=== PATIENT | female | born 1940 | race Caucasian/White ===

== ENCOUNTER 2016-02-23 10:00 | Outpatient (RCR) | payer MEDICARE ==
[2008-07-26 12:34] VITALS: BP 126/73
[2015-11-30 13:58] VITALS: BP 121/49; PULSE 57; TEMP 98.5
[2015-12-07 13:37] LABS: HEMATOCRIT 31.1 % (37.0-47.0); HEMOGLOBIN 9.4 g/dl (12.5-16.0)
[2015-12-07 13:48] LABS: CALCIUM 7.4 mg/dL (8.4-10.2); CREATININE, serum 1.32 mg/dL (0.52-1.25); POTASSIUM 4.7 mmol/L (3.4-5.0)
[2015-12-07 14:24] VITALS: BP 128/78; PULSE 78; TEMP 97.5
[2015-12-14 11:12] VITALS: BP 114/49; PULSE 56; TEMP 97.5
[2015-12-21 10:49] VITALS: BP 118/50; PULSE 52; TEMP 97.8
[2015-12-31 11:17] VITALS: BP 121/53; PULSE 52; TEMP 98.3
[2016-01-07 10:00] VITALS: BP 126/55; PULSE 54; TEMP 98.2
[2016-01-07 10:42] LABS: MEAN CELL VOLUME 111 fl (80.0-100.0); MEAN CORPUSCULAR HGB CONC 31 g/dl (33.0-37.0); MEAN PLATELET VOLUME 10.7 fl (7.4-10.4); PLATELET COUNT 137 K/mm3 (130-400); RED BLOOD COUNT 3.01 M/mm3 (4.10-5.30); REDCELL DISTRIBUTION WIDTH-CV 14.2 % (11.5-14.5); WHITE BLOOD COUNT 5.8 K/mm3 (4.8-10.8)
[2016-01-07 10:46] LABS: HEMATOCRIT 33.3 % (37.0-47.0); HEMOGLOBIN 10.2 g/dl (12.5-16.0); MEAN CORPUSCULAR HEMOGLOBIN 34 pg (27.0-31.0)
[2016-01-07 10:56] LABS: ADJUSTED CALCIUM 7.6 mg/dL (8.4-10.2); ALBUMIN 2.7 gm/dL (3.5-5.0); BILIRUBIN,TOTAL 0.8 mg/dL (0.0-1.0); CALCIUM 6.6 mg/dL (8.4-10.2); CREATININE, serum 0.78 mg/dL (0.52-1.25); POTASSIUM 4.4 mmol/L (3.4-5.0); TOTAL PROTEIN 5.3 gm/dL (6.4-8.2)
[2016-01-12 11:30] LABS: VITAMIN K 0.09 ng/mL (())
[2016-01-13 10:15] VITALS: BP 128/51; PULSE 52; TEMP 98
[2016-01-20 10:03] VITALS: BP 125/69; PULSE 57; TEMP 97.9
[2016-01-29 10:22] VITALS: BP 132/60; PULSE 57; TEMP 98
[2016-02-08 08:24] VITALS: BP 134/54; PULSE 58; TEMP 98.6
[2016-02-08 08:52] LABS: HEMATOCRIT 31.4 % (37.0-47.0); HEMOGLOBIN 9.5 g/dl (12.5-16.0)
[2016-02-08 08:58] LABS: CALCIUM 7.6 mg/dL (8.4-10.2); CREATININE, serum 0.82 mg/dL (0.52-1.25); POTASSIUM 3.6 mmol/L (3.4-5.0)
[2016-02-16 10:30] VITALS: BP 140/62; PULSE 59
[~2016-02-23] VITALS: Ht 167.6 cm; Wt 77.0 kg
[~2016-02-23 10:00] MED LIST: ALIGN; AMBIEN 10MG10 M1 PO; AMBIEN 10MG10 MG PO; CALCIUM CARBON650 M2 PO; CALTRATE-600 W600 MG PO; CELEBREX 200MG200 MG PO; CELEXA 20MG20 MG/TAB PO; CELEXA20 MG PO; CIPRO 100MG TA100 MG PO; CRANBERRY CONC500 MG PO; CRANBERRY1 CAP PO; CRANBERRY450 MG PO; FORTEO250 MCG/ML SC; FUROSEMIDE40 MG PO; HYDROCODONE/APAP PO; K-DUR 10 MEQ T10 MEQ PO; KLOR-CON M2020 MEQ PO; LASIX 40MG TABL40 MG PO; LEVOTHROID0.2 M1 PO; LEVOTHYROXINE0.2 MG PO; LEVOXYL0.2 MG PO; LOMOTIL 0.025 M1 TAB; LOMOTIL 0.025 M1 TAB PO; MOBIC15 MG PO; MULTIPLE VITAMI1 CAP PO; MULTIPLE VITAMI1 TA5 PO; MVI IJ; MVI PO; NATURAL ZINC50 MG PO; NORCO 325 MG-51 TAB PO; PANTOPRAZOLE40 MG PO; PARICALCITOL IV; PENTASA PO; PENTASA500 MG PO; POTASSIUM CH2 MEQ/ML PO; POTASSIUM CHLO10 ME3 PO; PRILOSEC 20MG20 MG PO; PRILOSEC20 MG PO; PROBIOTICA100 Milli1 PO; PROTONIX 40MG T40 MG PO; RECLAST IJ; RECLAST5 MG/100 M IV; RECLAST5 MG/1001 IV; SYNTHROID0.05 MG/TA PO; SYNTHROID0.3 MG PO; ULTRAM 50MG TAB50 MG PO; VITAMIN B IJ; VITAMIN B-12100 MCG PO; VITAMIN B1100 MCG/ML IM; VITAMIN B11000 MCG/M IM; VITAMIN B12 PO; VITAMIN B12500 MCG PO; VITAMIN K0.1 MG PO; ZAROXOLYN PO; ZITHROMAX 250M250 MG PO; [UNRECOGNIZED DRUG - OTHER] IV
[2016-02-23 10:30] VITALS: BP 124/57; PULSE 57; TEMP 97.9
== END 2016-02-28 | disposition still patient (30) ==
LOC: EUO
PROVIDERS: Internal Medicine
DX: E03.4 Atrophy of thyroid (acquired) (principal); K90.89 Other intestinal malabsorption; M81.0 Age-related osteoporosis without current pathological fracture; E53.8 Deficiency of other specified B group vitamins; E56.1 Deficiency of vitamin K; E55.9 Vitamin D deficiency, unspecified; K50.00 Crohn's disease of small intestine without complications; E61.0 Copper deficiency; K90.0 Celiac disease; K86.81 Exocrine pancreatic insufficiency
CPT/HCPCS: J1644; J2501; J3420; J3489; J7040; Q9967

== ENCOUNTER → 2016-06-02 | Outpatient (RCR) | payer MEDICARE ==
[2008-07-26 12:34] VITALS: BP 126/73
[2016-03-04 13:20] VITALS: BP 116/50; PULSE 58; TEMP 98.6
[2016-03-04 13:38] LABS: BASO % 0.7 % (0.0-2.0); EOS # 0.1 (0.0-0.7); EOS % 1.4 % (0-4.0); GRAN # 3.6 (1.4-6.5); GRAN % 62.1 % (42.2-75.2); LYMPH # 1.5 (1.2-3.4); LYMPH % 25.3 % (20.0-51.0); MEAN CORPUSCULAR HGB CONC 31 g/dl (33.0-37.0); MONO # 0.6 (0.1-0.6); MONO % 10.3 % (1.7-9.3); PLATELET COUNT 137 K/mm3 (130-400); RED BLOOD COUNT 2.84 M/mm3 (4.10-5.30); REDCELL DISTRIBUTION WIDTH-CV 14.2 % (11.5-14.5); WHITE BLOOD COUNT 5.7 K/mm3 (4.8-10.8)
[2016-03-04 13:39] LABS: HEMATOCRIT 30.6 % (37.0-47.0); HEMOGLOBIN 9.5 g/dl (12.5-16.0); MEAN CELL VOLUME 108 fl (80.0-100.0); MEAN CORPUSCULAR HEMOGLOBIN 33 pg (27.0-31.0)
[2016-03-04 13:52] LABS: ADJUSTED CALCIUM 8.3 mg/dL (8.4-10.2); ALBUMIN 2.8 gm/dL (3.5-5.0); BILIRUBIN,TOTAL 0.8 mg/dL (0.0-1.0); CALCIUM 7.3 mg/dL (8.4-10.2); CREATININE, serum 0.8 mg/dL (0.52-1.25); POTASSIUM 3.9 mmol/L (3.4-5.0); TOTAL PROTEIN 5.2 gm/dL (6.4-8.2)
[2016-03-07 13:28] LABS: .COPPER,S 0.51 mcg/mL (())
[2016-03-08 08:12] LABS: VITAMIN K 0.11 ng/mL (())
[2016-03-11 10:57] VITALS: BP 117/48; PULSE 52; TEMP 98.2
[2016-03-18 13:49] VITALS: BP 133/62; PULSE 65; TEMP 98.9
[2016-03-24 10:48] VITALS: BP 137/57; PULSE 54; TEMP 98.3
[2016-03-31 10:43] LABS: HEMATOCRIT 30.6 % (37.0-47.0)
[2016-03-31 10:53] LABS: CREATININE, serum 0.76 mg/dL (0.52-1.25); POTASSIUM 4.4 mmol/L (3.4-5.0)
[2016-03-31 11:56] VITALS: BP 120/47; PULSE 57; TEMP 97.9
[2016-04-07 11:36] VITALS: BP 123/50; PULSE 60; TEMP 98.4
[2016-04-14 11:57] VITALS: BP 125/44; PULSE 56; TEMP 97.7
[2016-04-21 13:44] VITALS: BP 124/52; PULSE 68; TEMP 98.3
[2016-04-28 13:40] VITALS: BP 119/55; PULSE 61; TEMP 98.5
[2016-04-28 14:05] LABS: MEAN CORPUSCULAR HGB CONC 29 g/dl (33.0-37.0); MEAN PLATELET VOLUME 11.1 fl (7.4-10.4); PLATELET COUNT 141 K/mm3 (130-400); RED BLOOD COUNT 2.65 M/mm3 (4.10-5.30); REDCELL DISTRIBUTION WIDTH-CV 16.3 % (11.5-14.5); WHITE BLOOD COUNT 6.6 K/mm3 (4.8-10.8)
[2016-04-28 14:10] LABS: HEMATOCRIT 30.1 % (37.0-47.0); HEMOGLOBIN 8.7 g/dl (12.5-16.0); MEAN CELL VOLUME 114 fl (80.0-100.0); MEAN CORPUSCULAR HEMOGLOBIN 33 pg (27.0-31.0)
[2016-04-28 14:39] LABS: ALBUMIN 2.9 gm/dL (3.5-5.0); BILIRUBIN,TOTAL 0.9 mg/dL (0.0-1.0); CALCIUM 8.1 mg/dL (8.4-10.2); CREATININE, serum 0.76 mg/dL (0.52-1.25); POTASSIUM 4.3 mmol/L (3.4-5.0); TOTAL PROTEIN 5.2 gm/dL (6.4-8.2)
[2016-04-28 14:55] LABS: PHOSPHOROUS 3.8 mg/dL (2.5-4.5)
[2016-05-02 14:42] LABS: .COPPER,S 0.55 mcg/mL (())
[2016-05-03 23:31] LABS: VITAMIN K 0.12 ng/mL (())
[2016-05-05 14:30] VITALS: BP 124/50; PULSE 59; TEMP 98.6
[2016-05-13 15:23] VITALS: BP 119/45; PULSE 53; TEMP 97.9
[2016-05-19 12:00] VITALS: BP 120/48; PULSE 57; TEMP 98.1
[2016-05-26 10:30] VITALS: BP 129/57; PULSE 56; TEMP 98.1
[2016-05-26 10:42] LABS: HEMATOCRIT 34.4 % (37.0-47.0); HEMOGLOBIN 10.4 g/dl (12.5-16.0)
[2016-05-26 10:52] LABS: CALCIUM 8.1 mg/dL (8.4-10.2); CREATININE, serum 0.77 mg/dL (0.52-1.25); POTASSIUM 4.3 mmol/L (3.4-5.0)
[~2016-06-02] VITALS: Ht 167.6 cm; Wt 77.0 kg
[~2016-06-02] MED LIST changes: +SYNTHROID0.2 MG/TAB PO
[2016-06-02 11:10] VITALS: BP 126/58; PULSE 56; TEMP 98.3
== END | disposition still patient (30) ==
LOC: EUO
PROVIDERS: Family Medicine; Internal Medicine
DX: E03.4 Atrophy of thyroid (acquired) (principal); K90.89 Other intestinal malabsorption; M81.0 Age-related osteoporosis without current pathological fracture; E53.8 Deficiency of other specified B group vitamins; E56.1 Deficiency of vitamin K; E55.9 Vitamin D deficiency, unspecified; K50.00 Crohn's disease of small intestine without complications; E61.0 Copper deficiency; K90.0 Celiac disease; K86.81 Exocrine pancreatic insufficiency
CPT/HCPCS: J1644; J2501; J3420; J7040

== ENCOUNTER 2016-09-01 10:00 | Outpatient (RCR) | payer MEDICARE ==
[2008-07-26 12:34] VITALS: BP 126/73
[2016-06-09 11:00] VITALS: BP 113/44; PULSE 58; TEMP 97.9
[2016-06-16 10:18] VITALS: BP 126/44; PULSE 54; TEMP 97.1
[2016-06-16 12:00] VITALS: BP 126/44; PULSE 64; TEMP 97.8
[2016-06-23 11:40] LABS: HEMATOCRIT 34.9 % (37.0-47.0); HEMOGLOBIN 10.7 g/dl (12.5-16.0)
[2016-06-23 11:49] LABS: CALCIUM 8.3 mg/dL (8.4-10.2); CREATININE, serum 0.91 mg/dL (0.52-1.25); PHOSPHOROUS 4.6 mg/dL (2.5-4.5); POTASSIUM 3.6 mmol/L (3.4-5.0)
[2016-07-04 11:56] VITALS: BP 120/56; PULSE 57; TEMP 98.1
[2016-07-12 10:15] VITALS: BP 132/51; PULSE 55; TEMP 98.4
[2016-07-19 10:43] LABS: MEAN CELL VOLUME 108 fl (80.0-100.0); MEAN CORPUSCULAR HGB CONC 30 g/dl (33.0-37.0); MEAN PLATELET VOLUME 11.1 fl (7.4-10.4); PLATELET COUNT 130 K/mm3 (130-400); RED BLOOD COUNT 3.17 M/mm3 (4.10-5.30); REDCELL DISTRIBUTION WIDTH-CV 14.5 % (11.5-14.5); WHITE BLOOD COUNT 6.5 K/mm3 (4.8-10.8)
[2016-07-19 10:45] LABS: HEMATOCRIT 34.2 % (37.0-47.0); HEMOGLOBIN 10.2 g/dl (12.5-16.0); MEAN CORPUSCULAR HEMOGLOBIN 32 pg (27.0-31.0)
[2016-07-19 10:52] VITALS: BP 123/53; PULSE 54; TEMP 98
[2016-07-19 11:33] LABS: ADJUSTED CALCIUM 8.2 mg/dL (8.4-10.2); BILIRUBIN,TOTAL 0.8 mg/dL (0.0-1.0); CALCIUM 7.4 mg/dL (8.4-10.2); CREATININE, serum 0.93 mg/dL (0.52-1.25); POTASSIUM 4.2 mmol/L (3.4-5.0); TOTAL PROTEIN 5.4 gm/dL (6.4-8.2)
[2016-07-19 11:47] LABS: PHOSPHOROUS 3.8 mg/dL (2.5-4.5)
[2016-07-21 17:11] LABS: .COPPER,S 0.62 mcg/mL (())
[2016-07-22 16:51] LABS: VITAMIN K 0.08 ng/mL (())
[2016-08-04 12:14] VITALS: BP 127/54; PULSE 62; TEMP 99.2
[2016-08-11 10:20] VITALS: BP 114/53; PULSE 57; TEMP 98.3
[2016-08-18 11:03] LABS: ADJUSTED CALCIUM 8.2 mg/dL (8.4-10.2); ALBUMIN 3.2 gm/dL (3.5-5.0); BILIRUBIN,TOTAL 0.7 mg/dL (0.0-1.0); CALCIUM 7.6 mg/dL (8.4-10.2); CREATININE, serum 0.79 mg/dL (0.52-1.25); POTASSIUM 3.9 mmol/L (3.4-5.0); TOTAL PROTEIN 5.6 gm/dL (6.4-8.2)
[2016-08-18 11:04] LABS: MEAN CELL VOLUME 110 fl (80.0-100.0); MEAN CORPUSCULAR HGB CONC 30 g/dl (33.0-37.0); MEAN PLATELET VOLUME 10.8 fl (7.4-10.4); PLATELET COUNT 150 K/mm3 (130-400); RED BLOOD COUNT 3.01 M/mm3 (4.10-5.30); REDCELL DISTRIBUTION WIDTH-CV 15.3 % (11.5-14.5); WHITE BLOOD COUNT 6.4 K/mm3 (4.8-10.8)
[2016-08-18 11:05] LABS: HEMOGLOBIN 9.8 g/dl (12.5-16.0); MEAN CORPUSCULAR HEMOGLOBIN 33 pg (27.0-31.0)
[2016-08-18 12:02] VITALS: BP 122/44; PULSE 58; TEMP 98.1
[2016-08-18 15:33] LABS: PHOSPHOROUS 3.4 mg/dL (2.5-4.5)
[2016-08-25 11:44] VITALS: BP 116/55; PULSE 71; TEMP 98.3
[~2016-09-01 10:00] MED LIST changes: -SYNTHROID0.2 MG/TAB PO
[2016-09-01 10:37] VITALS: BP 136/54; PULSE 59; TEMP 98.3
== END 2016-09-07 | disposition still patient (30) ==
LOC: EUO
PROVIDERS: Internal Medicine
DX: K90.0 Celiac disease (principal); E61.0 Copper deficiency; K50.00 Crohn's disease of small intestine without complications; E55.9 Vitamin D deficiency, unspecified; E56.1 Deficiency of vitamin K; E53.8 Deficiency of other specified B group vitamins; M81.0 Age-related osteoporosis without current pathological fracture; K90.89 Other intestinal malabsorption; E03.9 Hypothyroidism, unspecified; E21.3 Hyperparathyroidism, unspecified; Z79.899 Other long term (current) drug therapy
CPT/HCPCS: J1644; J2501; J3420; J7040

== ENCOUNTER → 2016-09-07 | Outpatient (CLI) | payer MEDICARE ==
[~2016-09-07] MED LIST changes: +SYNTHROID0.2 MG/TAB PO
== END ==
LOC: MC.RAD 09:55
DX: Z12.31 Encounter for screening mammogram for malignant neoplasm of breast (principal)

== ENCOUNTER 2016-09-30 10:39 | Day surgery (SDC) | payer MEDICARE ==
[2008-07-26 12:34] VITALS: BP 126/73
[~2016-09-30] VITALS: Ht 167.6 cm; Wt 74.8 kg
[~2016-09-30 10:39] MED LIST changes: -SYNTHROID0.2 MG/TAB PO
[2016-09-30] MEDS ORDERED: SYNTHROID0.05 MG/TA PO (11:08)
[2016-09-30] MEDS ORDERED: SYNTHROID0.2 MG/TAB PO (11:08)
[2016-09-30 11:36] VITALS: BP 135/57; PULSE 52; TEMP 97.8
[2016-09-30 12:34] VITALS: BP 136/65; PULSE 53; TEMP 97.5
[2016-09-30 12:45] VITALS: BP 144/59; PULSE 53
[2016-09-30 13:00] VITALS: BP 134/59; PULSE 52
[2016-09-30 13:15] VITALS: BP 128/59; PULSE 49
[2016-09-30 14:00] VITALS: BP 131/57; PULSE 53
== END 2016-09-30 13:15 | disposition home or self-care (01) ==
LOC: SDCO 10:39
DX: K50.80 Crohn's disease of both small and large intestine without complications (principal); E03.9 Hypothyroidism, unspecified; E78.00 Pure hypercholesterolemia, unspecified; E83.51 Hypocalcemia; K21.9 Gastro-esophageal reflux disease without esophagitis
CPT/HCPCS: OP; J1644; J2250; J3010; J7030

== ENCOUNTER 2016-12-08 10:00 | Outpatient (RCR) | payer MEDICARE ==
[2008-07-26 12:34] VITALS: BP 126/73
[2016-09-12 10:20] VITALS: BP 135/44; PULSE 54; TEMP 98.5
[2016-09-22 10:54] LABS: MEAN CELL VOLUME 106 fl (80.0-100.0); MEAN CORPUSCULAR HGB CONC 30 g/dl (33.0-37.0); MEAN PLATELET VOLUME 11.2 fl (7.4-10.4); PLATELET COUNT 128 K/mm3 (130-400); RED BLOOD COUNT 3.27 M/mm3 (4.10-5.30); WHITE BLOOD COUNT 5.5 K/mm3 (4.8-10.8)
[2016-09-22 11:02] LABS: HEMATOCRIT 34.7 % (37.0-47.0); HEMOGLOBIN 10.4 g/dl (12.5-16.0); MEAN CORPUSCULAR HEMOGLOBIN 32 pg (27.0-31.0)
[2016-09-22 11:04] LABS: ADJUSTED CALCIUM 8.7 mg/dL (8.4-10.2); ALBUMIN 3.1 gm/dL (3.5-5.0); BILIRUBIN,TOTAL 0.6 mg/dL (0.0-1.0); CREATININE, serum 0.69 mg/dL (0.52-1.25); TOTAL PROTEIN 5.4 gm/dL (6.4-8.2)
[2016-09-22 12:04] VITALS: BP 123/58; PULSE 62; TEMP 98.3
[2016-09-26 12:54] LABS: .COPPER,S 0.62 mcg/mL (())
[2016-09-27 06:28] LABS: VITAMIN K 0.09 ng/mL (())
[2016-09-28 10:00] VITALS: BP 113/44; PULSE 59; TEMP 98.5
[2016-10-06 10:15] VITALS: BP 105/47; PULSE 61; TEMP 98.9
[2016-10-13 13:09] VITALS: BP 114/56; PULSE 65; TEMP 98.3
[2016-10-20 11:30] VITALS: BP 136/52; PULSE 58; TEMP 98.1
[2016-10-20 11:34] LABS: CALCIUM 8.1 mg/dL (8.4-10.2); CREATININE, serum 0.84 mg/dL (0.52-1.25); PHOSPHOROUS 4.1 mg/dL (2.5-4.5)
[2016-10-27 10:50] VITALS: BP 112/43; PULSE 57; TEMP 98.2
[2016-11-03 11:07] VITALS: BP 118/46; PULSE 54; TEMP 98.1
[2016-11-10 10:21] VITALS: BP 114/72; PULSE 59; TEMP 98
[2016-11-17 10:44] VITALS: BP 111/46; PULSE 55; TEMP 98.2
[2016-11-17 10:47] LABS: HEMATOCRIT 34.5 % (37.0-47.0); HEMOGLOBIN 10.4 g/dl (12.5-16.0)
[2016-11-17 10:54] LABS: CALCIUM 8.1 mg/dL (8.4-10.2); CREATININE, serum 0.79 mg/dL (0.52-1.25)
[2016-11-24 10:44] VITALS: BP 131/52; PULSE 55; TEMP 98
[2016-12-01 10:39] VITALS: BP 119/46; PULSE 54; TEMP 98.2
[~2016-12-08] VITALS: Ht 167.6 cm; Wt 78.8 kg
[~2016-12-08 10:00] MED LIST changes: +SYNTHROID0.2 MG/TAB PO
[2016-12-08 10:29] VITALS: BP 126/45; PULSE 65; TEMP 98
== END 2016-12-11 ==
LOC: EUO
PROVIDERS: Internal Medicine
DX: E03.9 Hypothyroidism, unspecified (principal); K90.89 Other intestinal malabsorption; M81.0 Age-related osteoporosis without current pathological fracture; E53.8 Deficiency of other specified B group vitamins; E56.1 Deficiency of vitamin K; E55.9 Vitamin D deficiency, unspecified; K50.00 Crohn's disease of small intestine without complications; K52.89 Other specified noninfective gastroenteritis and colitis; E61.0 Copper deficiency; K90.0 Celiac disease; Z79.899 Other long term (current) drug therapy
CPT/HCPCS: J1644; J2501; J2704; J3420; J7040

== ENCOUNTER → 2017-01-30 | Outpatient (REF) | LOC: ZLAB.WCH 14:25 | DX: Z01.89 Encounter for other specified special examinations (principal) ==

== ENCOUNTER → 2017-02-08 | Outpatient (REF) ==
[2008-07-26 12:34] VITALS: BP 126/73
[~2017-02-08] VITALS: Ht 170.2 cm; Wt 80.7 kg
[~2017-02-08] MED LIST changes: +CIPRO 500MG TA500 MG PO
[2017-02-09 10:22] VITALS: BP 119/46; PULSE 65; TEMP 97.8
== END ==
LOC: ZLAB.WCH 08:36
DX: Z01.89 Encounter for other specified special examinations (principal)

== ENCOUNTER 2017-02-16 10:00 | Outpatient (RCR) | payer MEDICARE ==
[2008-07-26 12:34] VITALS: BP 126/73
[2016-12-15 10:58] VITALS: BP 117/59; PULSE 59; TEMP 97.7
[2016-12-15 11:06] LABS: MEAN CELL VOLUME 110 fl (80.0-100.0); MEAN CORPUSCULAR HGB CONC 30 g/dl (33.0-37.0); MEAN PLATELET VOLUME 10.6 fl (7.4-10.4); PLATELET COUNT 147 K/mm3 (130-400); RED BLOOD COUNT 2.97 M/mm3 (4.10-5.30)
[2016-12-15 11:07] LABS: HEMATOCRIT 32.7 % (37.0-47.0); HEMOGLOBIN 9.7 g/dl (12.5-16.0); MEAN CORPUSCULAR HEMOGLOBIN 33 pg (27.0-31.0)
[2016-12-15 11:21] LABS: ALBUMIN 3.1 gm/dL (3.5-5.0); BILIRUBIN,TOTAL 0.8 mg/dL (0.0-1.0); CALCIUM 7.8 mg/dL (8.4-10.2); CREATININE, serum 0.83 mg/dL (0.52-1.25); POTASSIUM 4.3 mmol/L (3.4-5.0); TOTAL PROTEIN 5.5 gm/dL (6.4-8.2)
[2016-12-17 12:15] LABS: .COPPER,S 0.59 mcg/mL (())
[2016-12-22 02:46] LABS: VITAMIN K 0.07 ng/mL (())
[2016-12-22 11:17] VITALS: BP 108/47; PULSE 59; TEMP 98
[2016-12-29 10:30] VITALS: BP 117/39; PULSE 57; TEMP 98.3
[2017-01-05 10:30] VITALS: BP 129/51; PULSE 61
[2017-01-11 10:50] VITALS: BP 126/50; PULSE 57; TEMP 99.2
[2017-01-11 11:24] LABS: CREATININE, serum 0.89 mg/dL (0.52-1.25); PHOSPHOROUS 4.3 mg/dL (2.5-4.5); POTASSIUM 4.6 mmol/L (3.4-5.0)
[2017-01-19 10:30] VITALS: BP 119/51; PULSE 67; TEMP 98
[2017-01-26 10:35] VITALS: BP 119/51; PULSE 53; TEMP 98.6
[2017-02-09 10:43] LABS: MEAN CELL VOLUME 106 fl (80.0-100.0); MEAN CORPUSCULAR HGB CONC 31 g/dl (33.0-37.0); MEAN PLATELET VOLUME 10.1 fl (7.4-10.4); PLATELET COUNT 290 K/mm3 (130-400); RED BLOOD COUNT 3.05 M/mm3 (4.10-5.30); REDCELL DISTRIBUTION WIDTH-CV 15.4 % (11.5-14.5)
[2017-02-09 10:47] LABS: HEMATOCRIT 32.4 % (37.0-47.0); HEMOGLOBIN 9.9 g/dl (12.5-16.0); MEAN CORPUSCULAR HEMOGLOBIN 32 pg (27.0-31.0)
[2017-02-09 11:07] LABS: ALBUMIN 3.1 gm/dL (3.5-5.0); BILIRUBIN,TOTAL 0.8 mg/dL (0.0-1.0); CALCIUM 8.1 mg/dL (8.4-10.2); CREATININE, serum 0.91 mg/dL (0.52-1.25); POTASSIUM 4.7 mmol/L (3.4-5.0); TOTAL PROTEIN 5.7 gm/dL (6.4-8.2)
[2017-02-11 11:40] LABS: .COPPER,S 0.83 mcg/mL (())
[2017-02-15 05:57] LABS: VITAMIN K 0.13 ng/mL (())
[~2017-02-16] VITALS: Ht 167.6 cm; Wt 75.3 kg
[2017-02-16 10:00] VITALS: BP 122/44; PULSE 70; TEMP 97.8
== END 2017-02-16 13:13 | disposition home or self-care (01) ==
LOC: EUO 10:00
PROVIDERS: Internal Medicine
DX: E03.9 Hypothyroidism, unspecified (principal); K90.9 Intestinal malabsorption, unspecified; M81.0 Age-related osteoporosis without current pathological fracture; E53.8 Deficiency of other specified B group vitamins; E83.51 Hypocalcemia; K50.00 Crohn's disease of small intestine without complications; K90.0 Celiac disease; Z95.9 Presence of cardiac and vascular implant and graft, unspecified
CPT/HCPCS: J1644; J2501; J3420; J7040

== ENCOUNTER 2017-05-19 11:30 | Outpatient (RCR) | payer MEDICARE ==
[2008-07-26 12:34] VITALS: BP 126/73
[2017-02-23 10:30] VITALS: BP 126/51; PULSE 61; TEMP 98
[2017-03-01 11:00] VITALS: BP 127/58; PULSE 54; TEMP 97.6
[2017-03-07 10:40] VITALS: BP 141/54; PULSE 55; TEMP 97.8
[2017-03-07 10:47] LABS: CALCIUM 8.1 mg/dL (8.4-10.2); CREATININE, serum 0.79 mg/dL (0.52-1.25); PHOSPHOROUS 3.7 mg/dL (2.5-4.5); POTASSIUM 3.8 mmol/L (3.4-5.0)
[2017-03-17 13:50] VITALS: BP 113/48; PULSE 49; TEMP 97.9
[2017-03-23 10:36] VITALS: BP 125/47; PULSE 92; TEMP 97.8
[2017-03-30 10:13] VITALS: BP 117/51; PULSE 68; TEMP 98.3
[2017-03-30 10:44] LABS: COLLECTION METHOD CLEAN CATCH
[2017-03-30 10:54] LABS: MUCOUS Present /lpf; PH 5 (5-8); SQUAMOUS EPITHELIAL 0-2 /hpf; URINE APPEARANCE Cloudy; URINE BACTERIA Moderate /hpf; URINE BILIRUBIN Negative (NEGATIVE); URINE BLOOD 3+ (NEGATIVE); URINE COLOR Yellow; URINE GLUCOSE Negative (NEGATIVE); URINE KETONE Negative (NEGATIVE); URINE LEUKOCYTE ESTERASE 3+ (NEGATIVE); URINE NITRATE Negative (NEGATIVE); URINE PROTEIN(semi-quant) Negative (NEGATIVE); URINE RBC 20-50 /hpf; URINE UROBILINOGEN Negative (NEGATIVE)
[2017-04-06 10:38] LABS: MEAN CELL VOLUME 104 fl (80.0-100.0); MEAN CORPUSCULAR HGB CONC 30 g/dl (33.0-37.0); MEAN PLATELET VOLUME 10.3 fl (7.4-10.4); PLATELET COUNT 181 K/mm3 (130-400); RED BLOOD COUNT 3.23 M/mm3 (4.10-5.30)
[2017-04-06 10:39] LABS: HEMATOCRIT 33.5 % (37.0-47.0); MEAN CORPUSCULAR HEMOGLOBIN 31 pg (27.0-31.0)
[2017-04-06 10:50] LABS: ALBUMIN 2.9 gm/dL (3.5-5.0); BILIRUBIN,TOTAL 0.5 mg/dL (0.0-1.0); CALCIUM 7.9 mg/dL (8.4-10.2); CREATININE, serum 0.82 mg/dL (0.52-1.25); PHOSPHOROUS 4.1 mg/dL (2.5-4.5); POTASSIUM 5.2 mmol/L (3.4-5.0); TOTAL PROTEIN 5.4 gm/dL (6.4-8.2)
[2017-04-06 11:16] VITALS: BP 126/55; PULSE 66; TEMP 98.1
[2017-04-08 13:42] LABS: .COPPER,S 0.64 mcg/mL (())
[2017-04-11 07:41] LABS: VITAMIN K 1.18 ng/mL (())
[2017-04-12 14:53] VITALS: BP 133/56; PULSE 56; TEMP 98
[2017-04-25 12:33] VITALS: BP 133/56; PULSE 56; TEMP 98
[2017-05-04 10:46] VITALS: BP 133/49; PULSE 57; TEMP 98.6
[2017-05-04 10:51] LABS: CALCIUM 7.7 mg/dL (8.4-10.2); PHOSPHOROUS 3.3 mg/dL (2.5-4.5)
[2017-05-04 11:00] LABS: CREATININE, serum 0.7 mg/dL (0.52-1.25)
[2017-05-11 10:15] VITALS: BP 128/55; PULSE 57; TEMP 97.7
[~2017-05-19] VITALS: Ht 167.6 cm; Wt 76.7 kg
[2017-05-19 11:40] VITALS: BP 133/55; PULSE 68; TEMP 97.9
== END 2017-05-19 14:09 | disposition home or self-care (01) ==
LOC: EUO 11:30
PROVIDERS: Internal Medicine
DX: N39.0 Urinary tract infection, site not specified (principal); K90.89 Other intestinal malabsorption; E03.9 Hypothyroidism, unspecified; M81.0 Age-related osteoporosis without current pathological fracture; E53.8 Deficiency of other specified B group vitamins; E56.1 Deficiency of vitamin K; E83.51 Hypocalcemia; K50.00 Crohn's disease of small intestine without complications; K90.0 Celiac disease; Z45.2 Encounter for adjustment and management of vascular access device; Z48.00 Encounter for change or removal of nonsurgical wound dressing; Z88.0 Allergy status to penicillin; Z88.2 Allergy status to sulfonamides; Z88.6 Allergy status to analgesic agent
CPT/HCPCS: J1644; J2501; J3420; J7040

== ENCOUNTER 2017-08-21 11:00 | Outpatient (RCR) | payer MEDICARE ==
[2008-07-26 12:34] VITALS: BP 126/73
[2017-05-25 10:15] VITALS: BP 138/50; PULSE 54; TEMP 98.2
[2017-06-05 10:56] VITALS: BP 115/47; PULSE 127; TEMP 97.5
[2017-06-05 11:23] LABS: MEAN CELL VOLUME 104 fl (80.0-100.0); MEAN CORPUSCULAR HGB CONC 31 g/dl (33.0-37.0); MEAN PLATELET VOLUME 10.8 fl (7.4-10.4); PLATELET COUNT 172 K/mm3 (130-400); RED BLOOD COUNT 3.48 M/mm3 (4.10-5.30); REDCELL DISTRIBUTION WIDTH-CV 14.5 % (11.5-14.5)
[2017-06-05 11:25] LABS: HEMATOCRIT 36.1 % (37.0-47.0); HEMOGLOBIN 11.2 g/dl (12.5-16.0); MEAN CORPUSCULAR HEMOGLOBIN 32 pg (27.0-31.0)
[2017-06-05 11:45] LABS: ALBUMIN 3.1 gm/dL (3.5-5.0); BILIRUBIN,TOTAL 0.5 mg/dL (0.0-1.0); CALCIUM 7.4 mg/dL (8.4-10.2); CREATININE, serum 1.06 mg/dL (0.52-1.25); PHOSPHOROUS 3.7 mg/dL (2.5-4.5); POTASSIUM 4.7 mmol/L (3.4-5.0); TOTAL PROTEIN 5.8 gm/dL (6.4-8.2)
[2017-06-07 16:58] LABS: .COPPER,S 0.58 mcg/mL (())
[2017-06-07 23:51] LABS: VITAMIN K 0.08 ng/mL (())
[2017-06-14 14:18] VITALS: BP 134/50; PULSE 64; TEMP 98.5
[2017-06-21 11:06] VITALS: BP 130/51; PULSE 62; TEMP 97.8
[2017-06-29 10:28] VITALS: BP 147/52; PULSE 64; TEMP 98
[2017-06-29 13:27] LABS: CALCIUM 7.6 mg/dL (8.4-10.2); CREATININE, serum 0.78 mg/dL (0.52-1.25); PHOSPHOROUS 3.5 mg/dL (2.5-4.5); POTASSIUM 4.7 mmol/L (3.4-5.0)
[2017-07-06 10:24] VITALS: BP 124/50; PULSE 55; TEMP 97.8
[2017-07-13 07:40] VITALS: BP 123/54; PULSE 65; TEMP 98.1
[2017-07-20 10:39] VITALS: BP 114/51; PULSE 64; TEMP 97.7
[2017-07-27 10:23] VITALS: BP 128/60; PULSE 72; TEMP 98.6
[2017-07-27 10:30] LABS: HEMOGLOBIN 10.6 g/dl (12.5-16.0); MEAN CELL VOLUME 107 fl (80.0-100.0); MEAN CORPUSCULAR HEMOGLOBIN 32 pg (27.0-31.0); MEAN CORPUSCULAR HGB CONC 30 g/dl (33.0-37.0); MEAN PLATELET VOLUME 10.5 fl (7.4-10.4); PLATELET COUNT 149 K/mm3 (130-400); RED BLOOD COUNT 3.27 M/mm3 (4.10-5.30); REDCELL DISTRIBUTION WIDTH-CV 14.5 % (11.5-14.5)
[2017-07-27 10:31] LABS: HEMATOCRIT 35.1 % (37.0-47.0)
[2017-07-27 11:02] LABS: ALBUMIN 2.9 gm/dL (3.5-5.0); BILIRUBIN,TOTAL 0.5 mg/dL (0.0-1.0); CALCIUM 7.9 mg/dL (8.4-10.2); CREATININE, serum 0.79 mg/dL (0.52-1.25); POTASSIUM 4.1 mmol/L (3.4-5.0); TOTAL PROTEIN 5.5 gm/dL (6.4-8.2)
[2017-07-29 11:40] LABS: .COPPER,S 0.61 mcg/mL (())
[2017-08-02 03:18] LABS: VITAMIN K 0.08 ng/mL (())
[2017-08-03 10:05] VITALS: BP 119/55; PULSE 61; TEMP 98.3
[2017-08-10 10:50] VITALS: BP 120/56; PULSE 66; TEMP 98
[~2017-08-21] VITALS: Ht 167.6 cm; Wt 73.5 kg
[2017-08-21 11:50] LABS: CREATININE, serum 0.85 mg/dL (0.52-1.25); POTASSIUM 4.6 mmol/L (3.4-5.0)
[2017-08-21 12:30] VITALS: BP 137/66; PULSE 66; TEMP 98.7
== END 2017-08-23 | disposition home or self-care (01) ==
LOC: EUO
PROVIDERS: Internal Medicine
DX: E53.8 Deficiency of other specified B group vitamins (principal); K90.89 Other intestinal malabsorption; E03.4 Atrophy of thyroid (acquired); M81.0 Age-related osteoporosis without current pathological fracture; E56.1 Deficiency of vitamin K; E55.9 Vitamin D deficiency, unspecified; E83.51 Hypocalcemia; K50.00 Crohn's disease of small intestine without complications; E61.0 Copper deficiency; K90.0 Celiac disease
CPT/HCPCS: J1644; J2501; J3420; J7040

== ENCOUNTER → 2017-10-16 | Outpatient (CLI) | payer MEDICARE | LOC: MC.RAD 11:06 | DX: Z12.31 Encounter for screening mammogram for malignant neoplasm of breast (principal) ==

== ENCOUNTER 2017-10-19 04:33 | Observation (INO) | payer MEDICARE ==
[~2017-10-19] VITALS: Ht 170.2 cm; Wt 76.6 kg
[2017-10-19 05:19] VITALS: BP 144/73; PULSE 64
[2017-10-19 05:24] LABS: BASO % 0.4 % (0.0-2.0); EOS # 0.1 (0.0-0.7); EOS % 1.5 % (0-4.0); GRAN # 6.2 (1.4-6.5); GRAN % 78.6 % (42.2-75.2); HEMOGLOBIN 10.9 g/dl (12.5-16.0); LYMPH # 0.9 (1.2-3.4); LYMPH % 11.6 % (20.0-51.0); MEAN CELL VOLUME 108 fl (80.0-100.0); MEAN CORPUSCULAR HEMOGLOBIN 33 pg (27.0-31.0); MEAN CORPUSCULAR HGB CONC 30 g/dl (33.0-37.0); MEAN PLATELET VOLUME 10.7 fl (7.4-10.4); MONO # 0.6 (0.1-0.6); MONO % 7.5 % (1.7-9.3); PLATELET COUNT 160 K/mm3 (130-400); RED BLOOD COUNT 3.33 M/mm3 (4.10-5.30); REDCELL DISTRIBUTION WIDTH-CV 15.2 % (11.5-14.5)
[2017-10-19 05:26] LABS: HEMATOCRIT 35.8 % (37.0-47.0)
[2017-10-19 05:28] LABS: INR 1.1 (0.8-3.0); PROTHROMBIN TIME 12.6 SECONDS (9.7-12.8)
[2017-10-19 05:32] LABS: ALBUMIN 2.9 gm/dL (3.5-5.0); BILIRUBIN,TOTAL 0.6 mg/dL (0.0-1.0); CALCIUM 8.4 mg/dL (8.4-10.2); CREATININE, serum 0.73 mg/dL (0.52-1.25); POTASSIUM 4.6 mmol/L (3.4-5.0); TOTAL PROTEIN 5.5 gm/dL (6.4-8.2)
[2017-10-19 05:46] LABS: TROPONIN-I 0.164 ng/mL (0.000-0.034)
[2017-10-19 07:21] LABS: COLLECTION METHOD CLEAN CATCH
[2017-10-19 07:27] LABS: MUCOUS Present /lpf; PH 5 (5-8); SQUAMOUS EPITHELIAL 0-2 /hpf; URINE APPEARANCE Clear; URINE BACTERIA Rare /hpf; URINE BILIRUBIN Negative (NEGATIVE); URINE BLOOD Negative (NEGATIVE); URINE COLOR Yellow; URINE GLUCOSE Negative (NEGATIVE); URINE KETONE Negative (NEGATIVE); URINE LEUKOCYTE ESTERASE Trace (NEGATIVE); URINE NITRATE Negative (NEGATIVE); URINE PROTEIN(semi-quant) Negative (NEGATIVE); URINE RBC 0-2 /hpf; URINE UROBILINOGEN Negative (NEGATIVE)
[2017-10-19 11:38] VITALS: BP 111/52; PULSE 73; TEMP 98.7
[2017-10-19 15:32] VITALS: BP 105/45; PULSE 65; TEMP 98.9
[2017-10-19 20:33] VITALS: BP 113/50; PULSE 71; TEMP 98.5
[2017-10-19 23:00] VITALS: BP 108/43; PULSE 63; TEMP 98.6
[2017-10-20 04:14] VITALS: BP 112/50; PULSE 62; TEMP 98.7
[2017-10-20 07:14] VITALS: BP 114/46; PULSE 57; TEMP 98.5
[2017-10-20 07:29] LABS: BASO % 0.5 % (0.0-2.0); EOS # 0.1 (0.0-0.7); EOS % 2.2 % (0-4.0); GRAN # 3.9 (1.4-6.5); GRAN % 65.1 % (42.2-75.2); LYMPH # 1.2 (1.2-3.4); LYMPH % 20.3 % (20.0-51.0); MEAN CELL VOLUME 107 fl (80.0-100.0); MEAN CORPUSCULAR HGB CONC 30 g/dl (33.0-37.0); MEAN PLATELET VOLUME 11.2 fl (7.4-10.4); MONO # 0.7 (0.1-0.6); MONO % 11.7 % (1.7-9.3); PLATELET COUNT 138 K/mm3 (130-400); RED BLOOD COUNT 2.92 M/mm3 (4.10-5.30); REDCELL DISTRIBUTION WIDTH-CV 15.4 % (11.5-14.5)
[2017-10-20 07:30] LABS: HEMATOCRIT 31.2 % (37.0-47.0); HEMOGLOBIN 9.4 g/dl (12.5-16.0); MEAN CORPUSCULAR HEMOGLOBIN 32 pg (27.0-31.0)
[2017-10-20 07:45] LABS: ALBUMIN 2.3 gm/dL (3.5-5.0); BILIRUBIN,TOTAL 0.7 mg/dL (0.0-1.0); CALCIUM 7.9 mg/dL (8.4-10.2); CREATININE, serum 0.68 mg/dL (0.52-1.25); POTASSIUM 3.9 mmol/L (3.4-5.0); TOTAL PROTEIN 4.6 gm/dL (6.4-8.2)
[2017-10-20 08:04] LABS: TROPONIN-I 0.126 ng/mL (0.000-0.034)
[2017-10-20] MEDS ORDERED: NORCO 325 MG-51 TAB PO ×2 (10:55→18:11)
[2017-10-20 11:42] VITALS: BP 107/73; PULSE 80; TEMP 98.8
[2017-10-20 11:54] VITALS: BP 118/44; PULSE 59; TEMP 98.1
[2017-10-20 17:22] VITALS: BP 120/54; PULSE 63; TEMP 99.3
== END 2017-10-20 19:59 | disposition home or self-care (01) ==
LOC: COL.ER 04:33 → MEDICAL 06:44
PROVIDERS: Emergency Medicine; Family Medicine; Physician Assistant
DX: S72.142A Displaced intertrochanteric fracture of left femur, initial encounter for closed fracture (principal); W19.XXXA Unspecified fall, initial encounter; I95.1 Orthostatic hypotension; D53.9 Nutritional anemia, unspecified; K50.90 Crohn's disease, unspecified, without complications; K90.9 Intestinal malabsorption, unspecified; E03.9 Hypothyroidism, unspecified; I10 Essential (primary) hypertension; F32.9 Major depressive disorder, single episode, unspecified; M81.0 Age-related osteoporosis without current pathological fracture; M19.90 Unspecified osteoarthritis, unspecified site; E83.119 Hemochromatosis, unspecified; R94.5 Abnormal results of liver function studies; Z90.49 Acquired absence of other specified parts of digestive tract; Z96.653 Presence of artificial knee joint, bilateral; Z82.3 Family history of stroke; Z88.0 Allergy status to penicillin; Z88.2 Allergy status to sulfonamides; Z88.6 Allergy status to analgesic agent
CPT/HCPCS: 99233-AI; G0378; G8978-GP; G8979-GP; G8987-GO; G8988-GO; J1650; J7030

== ENCOUNTER 2017-11-22 10:00 | Outpatient (RCR) | payer MEDICARE ==
[2008-07-26 12:34] VITALS: BP 126/73
[2017-08-29 11:00] VITALS: BP 126/53; PULSE 72; TEMP 98.3
[2017-09-06 10:01] VITALS: BP 115/76; PULSE 70; TEMP 98.7
[2017-09-13 10:26] VITALS: BP 128/63; PULSE 64; TEMP 97.7
[2017-09-20 10:30] VITALS: BP 119/41; PULSE 57; TEMP 97.8
[2017-09-20 10:33] LABS: HEMOGLOBIN 10.7 g/dl (12.5-16.0); MEAN CELL VOLUME 108 fl (80.0-100.0); MEAN CORPUSCULAR HEMOGLOBIN 32 pg (27.0-31.0); MEAN CORPUSCULAR HGB CONC 30 g/dl (33.0-37.0); MEAN PLATELET VOLUME 10.4 fl (7.4-10.4); PLATELET COUNT 150 K/mm3 (130-400); REDCELL DISTRIBUTION WIDTH-CV 14.6 % (11.5-14.5)
[2017-09-20 10:36] LABS: HEMATOCRIT 35.5 % (37.0-47.0)
[2017-09-20 10:53] LABS: ALBUMIN 3.1 gm/dL (3.5-5.0); BILIRUBIN,TOTAL 0.7 mg/dL (0.0-1.0); CALCIUM 7.7 mg/dL (8.4-10.2); CREATININE, serum 0.64 mg/dL (0.52-1.25); PHOSPHOROUS 3.7 mg/dL (2.5-4.5); POTASSIUM 4.6 mmol/L (3.4-5.0); TOTAL PROTEIN 5.6 gm/dL (6.4-8.2)
[2017-09-23 12:58] LABS: .COPPER,S 0.66 mcg/mL (())
[2017-09-27 08:17] LABS: VITAMIN K 0.12 ng/mL (())
[2017-09-28 10:11] VITALS: BP 128/52; PULSE 58; TEMP 98.2
[2017-10-05 10:20] VITALS: BP 133/61; PULSE 68; TEMP 98.1
[2017-10-16 13:26] LABS: CALCIUM 7.1 mg/dL (8.4-10.2); CREATININE, serum 0.67 mg/dL (0.52-1.25); PHOSPHOROUS 3.6 mg/dL (2.5-4.5)
[2017-10-16 13:37] VITALS: BP 118/50; PULSE 58; TEMP 98.9
[2017-10-27 11:35] VITALS: BP 111/48; PULSE 58; TEMP 97.7
[2017-11-03 13:37] VITALS: BP 135/50; PULSE 65; TEMP 97.8
[2017-11-10 15:51] VITALS: BP 128/56; PULSE 61; TEMP 98.4
[2017-11-14 11:13] LABS: HEMATOCRIT 33.4 % (37.0-47.0); HEMOGLOBIN 10.5 g/dl (12.5-16.0); MEAN CELL VOLUME 106 fl (80.0-100.0); MEAN CORPUSCULAR HEMOGLOBIN 33 pg (27.0-31.0); MEAN CORPUSCULAR HGB CONC 31 g/dl (33.0-37.0); MEAN PLATELET VOLUME 10.3 fl (7.4-10.4); PLATELET COUNT 175 K/mm3 (130-400); RED BLOOD COUNT 3.14 M/mm3 (4.10-5.30); REDCELL DISTRIBUTION WIDTH-CV 15.2 % (11.5-14.5)
[2017-11-14 11:17] LABS: INR 2.1 (0.8-3.0); PROTHROMBIN TIME 24.4 SECONDS (9.7-12.8)
[2017-11-14 11:21] LABS: ALBUMIN 2.8 gm/dL (3.5-5.0); BILIRUBIN,TOTAL 0.5 mg/dL (0.0-1.0); CALCIUM 7.9 mg/dL (8.4-10.2); CREATININE, serum 0.75 mg/dL (0.52-1.25); POTASSIUM 4.4 mmol/L (3.4-5.0); TOTAL PROTEIN 5.4 gm/dL (6.4-8.2)
[2017-11-14 11:23] LABS: PHOSPHOROUS 3.6 mg/dL (2.5-4.5)
[2017-11-14 11:30] LABS: IRON,SERUM 54 ug/dL (35-150)
[2017-11-14 11:40] LABS: TOTAL IRON BINDING CAPACITY 169 ug/dL (265-497)
[~2017-11-22] VITALS: Ht 167.6 cm; Wt 75.2 kg
[~2017-11-22 10:00] MED LIST changes: +PERCOCET 325 MG1 TA2 PO; +XARELTO20 MG PO
[2017-11-22 12:50] VITALS: BP 104/60; PULSE 79; TEMP 97.4
== END 2017-11-27 | disposition still patient (30) ==
LOC: EUO
PROVIDERS: Internal Medicine
DX: E53.8 Deficiency of other specified B group vitamins (principal); E03.9 Hypothyroidism, unspecified; K90.9 Intestinal malabsorption, unspecified; M81.0 Age-related osteoporosis without current pathological fracture; E56.1 Deficiency of vitamin K; E55.9 Vitamin D deficiency, unspecified; K50.00 Crohn's disease of small intestine without complications; K90.0 Celiac disease; E61.0 Copper deficiency; Z45.2 Encounter for adjustment and management of vascular access device; Z95.828 Presence of other vascular implants and grafts
CPT/HCPCS: J1644; J2501; J3420; J7040

== ENCOUNTER → 2017-12-01 | Outpatient (CLI) | payer MEDICARE ==
[2017-12-01 09:41] LABS: CHOLESTEROL RISK RATIO 2.3
== END ==
LOC: COL.LAB 08:57
PROVIDERS: Internal Medicine Cardiovascular Disease
DX: R74.8 Abnormal levels of other serum enzymes (principal); R42 Dizziness and giddiness

== ENCOUNTER 2018-01-05 09:58 | Day surgery (SDC) | payer MEDICARE ==
[2008-07-26 12:34] VITALS: BP 126/73
[~2018-01-05] VITALS: Ht 167.7 cm; Wt 74.8 kg
[2018-01-05] VITALS (11 sets, daily range): BP systolic 125–155; BP diastolic 55–78; PULSE 57–72; TEMP 97.7
[2018-01-05 10:27] LABS: HEMOGLOBIN 10.9 g/dl (12.5-16.0); MEAN CELL VOLUME 105 fl (80.0-100.0); MEAN CORPUSCULAR HEMOGLOBIN 33 pg (27.0-31.0); MEAN CORPUSCULAR HGB CONC 31 g/dl (33.0-37.0); MEAN PLATELET VOLUME 10.3 fl (7.4-10.4); PLATELET COUNT 164 K/mm3 (130-400); RED BLOOD COUNT 3.35 M/mm3 (4.10-5.30); REDCELL DISTRIBUTION WIDTH-CV 15.9 % (11.5-14.5)
[2018-01-05 10:29] LABS: HEMATOCRIT 35.1 % (37.0-47.0)
[2018-01-05 10:39] LABS: INR 1.2 (0.8-3.0); PROTHROMBIN TIME 13.8 SECONDS (9.7-12.8)
[2018-01-05 11:06] LABS: CALCIUM 8.1 mg/dL (8.4-10.2); CREATININE, serum 0.67 mg/dL (0.52-1.25); POTASSIUM 4.2 mmol/L (3.4-5.0)
== END 2018-01-05 17:41 | disposition home or self-care (01) ==
LOC: COL.CAR 09:58
PROVIDERS: Internal Medicine Cardiovascular Disease
DX: I25.10 Atherosclerotic heart disease of native coronary artery without angina pectoris (principal); R55 Syncope and collapse; R94.39 Abnormal result of other cardiovascular function study; Z88.0 Allergy status to penicillin; Z88.2 Allergy status to sulfonamides; Z88.6 Allergy status to analgesic agent
CPT/HCPCS: J1644; J2250; J3010; Q9967

== ENCOUNTER 2018-02-19 13:00 | Outpatient (RCR) | payer MEDICARE ==
[2008-07-26 12:34] VITALS: BP 126/73
[2017-11-30 16:43] VITALS: BP 119/45; PULSE 61; TEMP 98.5
[2017-12-11 14:55] VITALS: BP 114/41; PULSE 58; TEMP 98
[2017-12-11 15:00] LABS: CALCIUM 7.5 mg/dL (8.4-10.2); CREATININE, serum 1.11 mg/dL (0.52-1.25); PHOSPHOROUS 4.2 mg/dL (2.5-4.5); POTASSIUM 4.6 mmol/L (3.4-5.0)
--- NOTE | 2017-12-11 16:22 | NUR ---
Report to Kim Henderson RN how assumed care ar this time.
[2017-12-19 14:47] VITALS: BP 134/53; PULSE 76
[2017-12-29 15:39] VITALS: BP 139/61; PULSE 70; TEMP 98.4
[2018-01-04 13:20] VITALS: BP 112/65; PULSE 62; TEMP 98.5
[2018-01-12 11:21] VITALS: BP 117/55; PULSE 70; TEMP 97.9
[2018-01-12 12:18] LABS: MEAN CELL VOLUME 108 fl (80.0-100.0); MEAN CORPUSCULAR HGB CONC 31 g/dl (33.0-37.0); MEAN PLATELET VOLUME 10.8 fl (7.4-10.4); PLATELET COUNT 164 K/mm3 (130-400); RED BLOOD COUNT 2.97 M/mm3 (4.10-5.30); REDCELL DISTRIBUTION WIDTH-CV 14.9 % (11.5-14.5)
[2018-01-12 12:30] LABS: ALBUMIN 2.4 gm/dL (3.5-5.0); BILIRUBIN,TOTAL 0.6 mg/dL (0.0-1.0); CALCIUM 7.7 mg/dL (8.4-10.2); CREATININE, serum 0.74 mg/dL (0.52-1.25); POTASSIUM 4.5 mmol/L (3.4-5.0); TOTAL PROTEIN 4.8 gm/dL (6.4-8.2)
[2018-01-12 12:45] LABS: HEMATOCRIT 32.1 % (37.0-47.0); HEMOGLOBIN 9.9 g/dl (12.5-16.0); MEAN CORPUSCULAR HEMOGLOBIN 33 pg (27.0-31.0)
[2018-01-16 11:00] LABS: .COPPER,S 0.87 mcg/mL (())
[2018-01-17 06:19] LABS: VITAMIN K 0.06 ng/mL (())
[2018-02-12 11:43] LABS: CALCIUM 7.4 mg/dL (8.4-10.2); CREATININE, serum 0.79 mg/dL (0.52-1.25); PHOSPHOROUS 3.5 mg/dL (2.5-4.5)
[2018-02-12 11:47] VITALS: BP 99/42; PULSE 74; TEMP 98.1
[~2018-02-19] VITALS: Ht 167.6 cm; Wt 79.5 kg
[2018-02-19 13:31] VITALS: BP 103/51; PULSE 84; TEMP 97.9
== END 2018-02-19 16:38 | disposition home or self-care (01) ==
LOC: EUO 13:00
PROVIDERS: Internal Medicine
DX: E53.8 Deficiency of other specified B group vitamins (principal); E03.9 Hypothyroidism, unspecified; K90.9 Intestinal malabsorption, unspecified; M81.0 Age-related osteoporosis without current pathological fracture; E56.1 Deficiency of vitamin K; E55.9 Vitamin D deficiency, unspecified; K50.00 Crohn's disease of small intestine without complications; E61.0 Copper deficiency; K90.0 Celiac disease; Z45.2 Encounter for adjustment and management of vascular access device; Z85.828 Personal history of other malignant neoplasm of skin
CPT/HCPCS: J1644; J2501; J3420; J7040

== ENCOUNTER → 2018-04-20 | Outpatient (CLI) | payer MEDICARE | LOC: COL.RAD 13:46 | DX: M79.89 Other specified soft tissue disorders (principal) ==

== ENCOUNTER 2018-05-21 13:00 | Outpatient (RCR) | payer MEDICARE ==
[2008-07-26 12:34] VITALS: BP 126/73
[2018-02-26 15:34] VITALS: BP 1109/58; PULSE 101; TEMP 99.1
--- NOTE | 2018-03-05 13:22 | NUR ---
Reviewed with patient and her hospital fall risk protocol.Pt amublated into unit with walker and no assist.I have reviewed policy personally since return to [facility] for infusion since rehab stay. This nurse instructed pt again to have admissions call us and we can bring pt in wheelchair or if pt prefers to ambulate, we can come to admissions to give gaitbelt assistance.Requested pt not ambualte to [facility] without assistance for weekly infusion.
[2018-03-05 13:25] LABS: HEMATOCRIT 39.3 % (37.0-47.0); HEMOGLOBIN 12.1 g/dl (12.5-16.0); MEAN CELL VOLUME 106 fl (80.0-100.0); MEAN CORPUSCULAR HEMOGLOBIN 33 pg (27.0-31.0); MEAN CORPUSCULAR HGB CONC 31 g/dl (33.0-37.0); MEAN PLATELET VOLUME 9.8 fl (7.4-10.4); PLATELET COUNT 220 K/mm3 (130-400); RED BLOOD COUNT 3.72 M/mm3 (4.10-5.30); REDCELL DISTRIBUTION WIDTH-CV 14.4 % (11.5-14.5)
[2018-03-05 13:50] LABS: ALBUMIN 2.5 gm/dL (3.5-5.0); BILIRUBIN,TOTAL 0.4 mg/dL (0.0-1.0); CALCIUM 8.1 mg/dL (8.4-10.2); CREATININE, serum 0.9 mg/dL (0.52-1.25); POTASSIUM 4.4 mmol/L (3.4-5.0); TOTAL PROTEIN 5.1 gm/dL (6.4-8.2)
[2018-03-05 15:30] VITALS: BP 107/51; PULSE 84; TEMP 98.4
[2018-03-07 18:38] LABS: .COPPER,S 0.79 mcg/mL (())
[2018-03-09 08:09] LABS: VITAMIN K 5.28 ng/mL (())
[2018-03-12 14:06] LABS: CALCIUM 7.8 mg/dL (8.4-10.2); CREATININE, serum 0.93 mg/dL (0.52-1.25); PHOSPHOROUS 3.9 mg/dL (2.5-4.5); POTASSIUM 4.1 mmol/L (3.4-5.0)
[2018-03-12 15:30] VITALS: BP 100/46; PULSE 81; TEMP 98.1
[2018-03-19 13:10] VITALS: BP 113/52; PULSE 68; TEMP 98.3
[2018-03-26 13:51] VITALS: BP 129/55; PULSE 75; TEMP 98.4
[2018-04-02 12:32] VITALS: BP 110/54; PULSE 60; TEMP 97.8
[2018-04-09 13:00] VITALS: BP 113/49; PULSE 66; TEMP 98.1
[2018-04-09 13:53] LABS: CALCIUM 7.6 mg/dL (8.4-10.2); CREATININE, serum 0.87 mg/dL (0.52-1.25); PHOSPHOROUS 4.1 mg/dL (2.5-4.5)
[2018-04-16 13:38] VITALS: BP 121/62; PULSE 60; TEMP 96.9
[2018-04-23 13:15] VITALS: BP 121/56; PULSE 73; TEMP 98.1
[2018-04-30 13:27] VITALS: BP 111/53; PULSE 60; TEMP 98.4
[2018-04-30 13:33] LABS: HEMOGLOBIN 10.7 g/dl (12.5-16.0); MEAN CELL VOLUME 107 fl (80.0-100.0); MEAN CORPUSCULAR HEMOGLOBIN 33 pg (27.0-31.0); MEAN CORPUSCULAR HGB CONC 31 g/dl (33.0-37.0); MEAN PLATELET VOLUME 10.6 fl (7.4-10.4); PLATELET COUNT 177 K/mm3 (130-400); RED BLOOD COUNT 3.25 M/mm3 (4.10-5.30); REDCELL DISTRIBUTION WIDTH-CV 15.7 % (11.5-14.5)
[2018-04-30 13:34] LABS: HEMATOCRIT 34.8 % (37.0-47.0)
[2018-04-30 13:56] LABS: ALBUMIN 2.6 gm/dL (3.5-5.0); BILIRUBIN,TOTAL 0.7 mg/dL (0.0-1.0); CREATININE, serum 0.92 mg/dL (0.52-1.25); POTASSIUM 4.5 mmol/L (3.4-5.0); TOTAL PROTEIN 5.1 gm/dL (6.4-8.2)
--- NOTE | 2018-04-30 14:58 | NUR ---
Report received from Joce Guardado.
[2018-05-02 13:28] LABS: .COPPER,S 0.67 mcg/mL (())
[2018-05-03 08:30] LABS: VITAMIN K 0.08 ng/mL (())
--- NOTE | 2018-05-07 14:00 | NUR ---
PT VSS WHILE HERE TO RECEIVE MEDICATIONS.
[2018-05-14 13:30] VITALS: BP 100/48; PULSE 67; TEMP 98.6
[~2018-05-21] VITALS: Ht 167.6 cm; Wt 70.4 kg
== END 2018-05-27 | disposition home or self-care (01) ==
LOC: EUO
PROVIDERS: Internal Medicine
DX: E53.8 Deficiency of other specified B group vitamins (principal); K50.00 Crohn's disease of small intestine without complications; K90.0 Celiac disease; E03.9 Hypothyroidism, unspecified; M81.0 Age-related osteoporosis without current pathological fracture; K90.9 Intestinal malabsorption, unspecified; E56.1 Deficiency of vitamin K; E55.9 Vitamin D deficiency, unspecified
CPT/HCPCS: J1644; J2501; J3420; J7040

== ENCOUNTER 2018-08-24 13:30 | Outpatient (RCR) | payer MEDICARE ==
[2008-07-26 12:34] VITALS: BP 126/73
[2018-05-28 13:27] VITALS: BP 113/45; PULSE 72; TEMP 98.2
[2018-06-04 13:30] VITALS: BP 116/48; PULSE 55; TEMP 97.6
[2018-06-04 13:35] LABS: CALCIUM 7.7 mg/dL (8.4-10.2); CREATININE, serum 1.31 (0.52-1.25); PHOSPHOROUS 4.3 mg/dL (2.5-4.5); POTASSIUM 4.7 mmol/L (3.4-5.0)
--- NOTE | 2018-06-04 15:45 | NUR ---
Pt discharged per w/c by nurse to car.
[2018-06-11 10:39] VITALS: BP 120/56; PULSE 58; TEMP 97.6
[2018-06-18 13:20] VITALS: BP 129/58; PULSE 66; TEMP 98.4
[2018-06-25 13:20] VITALS: BP 112/52; PULSE 57; TEMP 98.3
--- NOTE | 2018-06-25 16:05 | NUR ---
Pt discharged per w/c with nurse.
[2018-07-02 11:38] LABS: HEMOGLOBIN 10.5 g/dl (12.5-16.0); MEAN CELL VOLUME 113 fl (80.0-100.0); MEAN CORPUSCULAR HEMOGLOBIN 33 pg (27.0-31.0); MEAN CORPUSCULAR HGB CONC 30 g/dl (33.0-37.0); MEAN PLATELET VOLUME 10.2 fl (7.4-10.4); PLATELET COUNT 172 K/mm3 (130-400); RED BLOOD COUNT 3.14 M/mm3 (4.10-5.30); REDCELL DISTRIBUTION WIDTH-CV 15.1 % (11.5-14.5)
[2018-07-02 11:39] LABS: HEMATOCRIT 35.4 % (37.0-47.0)
[2018-07-02 11:44] VITALS: BP 113/48; PULSE 62; TEMP 98
[2018-07-02 11:51] LABS: ALBUMIN 2.7 gm/dL (3.5-5.0); BILIRUBIN,TOTAL 0.6 mg/dL (0.0-1.0); CALCIUM 6.7 mg/dL (8.4-10.2); CREATININE, serum 0.84 (0.52-1.25); PHOSPHOROUS 3.3 mg/dL (2.5-4.5); POTASSIUM 4.6 mmol/L (3.4-5.0); TOTAL PROTEIN 5.2 gm/dL (6.4-8.2)
[2018-07-05 20:22] LABS: VITAMIN K 0.08 ng/mL (())
[2018-07-09 13:16] VITALS: BP 110/38; PULSE 54; TEMP 97.5
[2018-07-17 13:54] VITALS: BP 107/57; PULSE 65; TEMP 98
[2018-07-23 13:32] VITALS: BP 114/54; PULSE 67; TEMP 98.6
[2018-07-30 13:46] LABS: CALCIUM 6.9 mg/dL (8.4-10.2); CREATININE, serum 0.71 (0.52-1.25); PHOSPHOROUS 3.4 mg/dL (2.5-4.5); POTASSIUM 4.3 mmol/L (3.4-5.0)
[2018-07-30 13:59] VITALS: BP 125/53; PULSE 58; TEMP 98.6
[2018-08-06 13:30] VITALS: BP 102/55; PULSE 58; TEMP 98.5
[2018-08-13 13:49] VITALS: BP 111/59; PULSE 55; TEMP 98.3
[~2018-08-24] VITALS: Ht 167.6 cm; Wt 65.4 kg
[~2018-08-24 13:30] MED LIST changes: +PROLIA60 MG/ML SQ
[2018-08-24 14:05] VITALS: BP 108/57; PULSE 60; TEMP 98.1
== END 2018-08-26 ==
LOC: EUO
PROVIDERS: Internal Medicine
DX: E03.4 Atrophy of thyroid (acquired) (principal); K90.89 Other intestinal malabsorption; M81.0 Age-related osteoporosis without current pathological fracture; E53.8 Deficiency of other specified B group vitamins; E56.1 Deficiency of vitamin K; E55.9 Vitamin D deficiency, unspecified; K50.00 Crohn's disease of small intestine without complications; E61.0 Copper deficiency; K90.0 Celiac disease; Z79.899 Other long term (current) drug therapy
CPT/HCPCS: J1644; J2501; J3420; J7040

== ENCOUNTER → 2018-11-14 | Outpatient (CLI) | payer MEDICARE | LOC: MC.RAD 13:09 | DX: Z12.31 Encounter for screening mammogram for malignant neoplasm of breast (principal) ==

== ENCOUNTER 2018-11-15 13:00 | Outpatient (RCR) | payer MEDICARE ==
[2008-07-26 12:34] VITALS: BP 126/73
[2018-08-30 14:04] LABS: MEAN CELL VOLUME 112 fl (80.0-100.0); MEAN CORPUSCULAR HGB CONC 30 g/dl (33.0-37.0); MEAN PLATELET VOLUME 10.4 fl (7.4-10.4); PLATELET COUNT 148 K/mm3 (130-400); RED BLOOD COUNT 2.85 M/mm3 (4.10-5.30); REDCELL DISTRIBUTION WIDTH-CV 15.9 % (11.5-14.5)
[2018-08-30 14:07] LABS: HEMOGLOBIN 9.5 g/dl (12.5-16.0); MEAN CORPUSCULAR HEMOGLOBIN 33 pg (27.0-31.0)
[2018-08-30 14:43] VITALS: BP 112/53; PULSE 63; TEMP 98.7
[2018-08-30 15:31] LABS: ALBUMIN 2.3 gm/dL (3.5-5.0); BILIRUBIN,TOTAL 0.6 mg/dL (0.0-1.0); CALCIUM 7.3 mg/dL (8.4-10.2); CREATININE, serum 0.66 (0.52-1.25); PHOSPHOROUS 3.1 mg/dL (2.5-4.5); POTASSIUM 4.2 mmol/L (3.4-5.0); TOTAL PROTEIN 4.5 gm/dL (6.4-8.2)
[2018-08-31 08:48] LABS: PTH,INTACT 395.7 pg/mL (6.6-88.9)
[2018-09-01 12:25] LABS: .COPPER,S 0.72 mcg/mL (())
[2018-09-04 08:09] LABS: VITAMIN K 0.08 ng/mL (())
[2018-09-06 12:00] VITALS: BP 107/51; PULSE 62; TEMP 97.5
[2018-09-13 11:53] VITALS: BP 134/64; PULSE 79; TEMP 97.5
[2018-09-20 11:36] VITALS: BP 116/48; PULSE 68; TEMP 98.2
[2018-09-27 13:15] VITALS: BP 128/62; PULSE 60; TEMP 98.4
[2018-09-27 13:50] LABS: CALCIUM 7.6 mg/dL (8.4-10.2); CREATININE, serum 0.69 (0.52-1.25); POTASSIUM 4.6 mmol/L (3.4-5.0)
[2018-10-04 13:04] VITALS: BP 131/63; PULSE 60; TEMP 98.4
[2018-10-10 10:00] VITALS: BP 127/58; PULSE 69; TEMP 97.9
[2018-10-18 13:15] VITALS: BP 112/68; PULSE 69; TEMP 98.3
[2018-10-25 13:23] LABS: MEAN CELL VOLUME 114 fl (80.0-100.0); MEAN CORPUSCULAR HGB CONC 29 g/dl (33.0-37.0); MEAN PLATELET VOLUME 10.2 fl (7.4-10.4); PLATELET COUNT 165 K/mm3 (130-400); RED BLOOD COUNT 2.89 M/mm3 (4.10-5.30); REDCELL DISTRIBUTION WIDTH-CV 14.9 % (11.5-14.5)
[2018-10-25 13:34] LABS: HEMATOCRIT 32.9 % (37.0-47.0); HEMOGLOBIN 9.5 g/dl (12.5-16.0); MEAN CORPUSCULAR HEMOGLOBIN 33 pg (27.0-31.0)
[2018-10-25 13:41] LABS: ALBUMIN 2.7 gm/dL (3.5-5.0); BILIRUBIN,TOTAL 0.7 mg/dL (0.0-1.0); CALCIUM 7.6 mg/dL (8.4-10.2); CREATININE, serum 0.72 (0.52-1.25); POTASSIUM 5.3 mmol/L (3.4-5.0)
[2018-10-25 14:30] VITALS: BP 124/51; PULSE 82; TEMP 99.6
[2018-11-01 11:49] VITALS: BP 112/62; PULSE 60; TEMP 98.1
[2018-11-08 10:00] VITALS: BP 111/46; PULSE 59; TEMP 97.1
--- NOTE | 2018-11-08 13:15 | NUR ---
Pulled back blood and Actovase from [facility]. More than 10 cc blood back. NS flush and Heaparin flush. INT discontinued intact.
[~2018-11-15] VITALS: Ht 167.6 cm; Wt 67.3 kg
[2018-11-15 11:17] VITALS: BP 123/48; PULSE 51; TEMP 97.5
== END 2018-11-19 12:58 | disposition home or self-care (01) ==
LOC: EUO 13:00
PROVIDERS: Internal Medicine
DX: K90.89 Other intestinal malabsorption (principal); E03.4 Atrophy of thyroid (acquired); M81.0 Age-related osteoporosis without current pathological fracture; E53.8 Deficiency of other specified B group vitamins; E56.1 Deficiency of vitamin K; E55.9 Vitamin D deficiency, unspecified; K50.00 Crohn's disease of small intestine without complications; K90.0 Celiac disease; E61.0 Copper deficiency
CPT/HCPCS: J1644; J2501; J2997; J3420; J7040; Q9967

== ENCOUNTER 2019-02-11 10:00 | Outpatient (RCR) | payer MEDICARE ==
[2008-07-26 12:34] VITALS: BP 126/73
[2018-11-22 13:45] VITALS: BP 126/62; PULSE 61; TEMP 98
[2018-11-22 14:42] LABS: CREATININE, serum 0.9 (0.52-1.25); PHOSPHOROUS 3.9 mg/dL (2.5-4.5); POTASSIUM 4.6 mmol/L (3.4-5.0)
[2018-11-29 15:28] VITALS: BP 119/47; PULSE 63; TEMP 98.3
[2018-12-06 14:29] VITALS: BP 105/45; PULSE 55; TEMP 97.6
[2018-12-13 11:00] VITALS: BP 128/54; PULSE 54; TEMP 97.5
[2018-12-20 14:24] LABS: MEAN CELL VOLUME 114 fl (80.0-100.0); MEAN CORPUSCULAR HGB CONC 29 g/dl (33.0-37.0); MEAN PLATELET VOLUME 10.4 fl (7.4-10.4); PLATELET COUNT 159 K/mm3 (130-400); RED BLOOD COUNT 2.85 M/mm3 (4.10-5.30)
[2018-12-20 14:30] LABS: HEMATOCRIT 32.6 % (37.0-47.0); HEMOGLOBIN 9.6 g/dl (12.5-16.0); MEAN CORPUSCULAR HEMOGLOBIN 34 pg (27.0-31.0)
[2018-12-20 14:36] LABS: ALBUMIN 3.3 gm/dL (3.5-5.0); BILIRUBIN,TOTAL 0.9 mg/dL (0.0-1.0); CALCIUM 8.2 mg/dL (8.4-10.2); CREATININE, serum 0.83 (0.52-1.25); IRON,SERUM 56 ug/dL (35-150); PHOSPHOROUS 3.9 mg/dL (2.5-4.5); POTASSIUM 4.3 mmol/L (3.4-5.0)
[2018-12-20 14:45] LABS: TOTAL IRON BINDING CAPACITY 191 ug/dL (265-497)
[2018-12-20 14:46] VITALS: BP 120/46; PULSE 60; TEMP 97.9
[2018-12-20 15:12] LABS: FERRITIN* 356 ng/mL (11-264)
[2018-12-26 06:44] LABS: VITAMIN K 10.28 ng/mL (())
[2018-12-27 11:03] VITALS: BP 150/56; PULSE 55; TEMP 97.6
[2019-01-03 13:50] VITALS: BP 104/53; PULSE 64; TEMP 98
[2019-01-10 11:45] VITALS: BP 101/47; PULSE 57; TEMP 97.6
[2019-01-15 10:35] VITALS: BP 105/52; PULSE 56; TEMP 98.3
[2019-01-15 10:59] LABS: CALCIUM 8.2 mg/dL (8.4-10.2); CREATININE, serum 0.83 (0.52-1.25); POTASSIUM 4.7 mmol/L (3.4-5.0)
[2019-01-24 12:00] VITALS: BP 132/52; PULSE 59; TEMP 97.6
[2019-01-31 13:39] VITALS: BP 118/39; PULSE 58; TEMP 97.8
[~2019-02-11] VITALS: Ht 167.6 cm; Wt 68.4 kg
[2019-02-11 10:47] LABS: HEMOGLOBIN 10.2 g/dl (12.5-16.0); MEAN CELL VOLUME 112 fl (80.0-100.0); MEAN CORPUSCULAR HEMOGLOBIN 33 pg (27.0-31.0); MEAN CORPUSCULAR HGB CONC 30 g/dl (33.0-37.0); MEAN PLATELET VOLUME 10.8 fl (7.4-10.4); PLATELET COUNT 175 K/mm3 (130-400); RED BLOOD COUNT 3.08 M/mm3 (4.10-5.30); REDCELL DISTRIBUTION WIDTH-CV 15.4 % (11.5-14.5)
[2019-02-11 10:49] LABS: HEMATOCRIT 34.6 % (37.0-47.0)
[2019-02-11 11:00] VITALS: BP 113/46; PULSE 66; TEMP 98.1
[2019-02-11 11:10] LABS: BILIRUBIN,TOTAL 0.7 mg/dL (0.0-1.0); CREATININE, serum 0.78 (0.52-1.25); IRON,SERUM 73 ug/dL (35-150); PHOSPHOROUS 3.4 mg/dL (2.5-4.5); POTASSIUM 5.2 mmol/L (3.4-5.0); TOTAL PROTEIN 5.5 gm/dL (6.4-8.2)
[2019-02-11 11:20] LABS: TOTAL IRON BINDING CAPACITY 174 ug/dL (265-497)
[2019-02-14 12:47] LABS: .COPPER,S 0.75 mcg/mL (())
[2019-02-15 07:38] LABS: VITAMIN K 0.05 ng/mL (())
== END 2019-02-20 | disposition home or self-care (01) ==
LOC: EUO
PROVIDERS: Internal Medicine
DX: E03.4 Atrophy of thyroid (acquired) (principal); K90.89 Other intestinal malabsorption; M81.0 Age-related osteoporosis without current pathological fracture; E53.8 Deficiency of other specified B group vitamins; E83.51 Hypocalcemia; K50.00 Crohn's disease of small intestine without complications; K90.0 Celiac disease; E56.1 Deficiency of vitamin K
CPT/HCPCS: J1644; J2501; J3420; J7040

== ENCOUNTER → 2019-06-10 | Outpatient (CLI) | payer MEDICARE | LOC: COL.VAS 09:31 | DX: I08.0 Rheumatic disorders of both mitral and aortic valves (principal); R60.1 Generalized edema ==

== ENCOUNTER → 2019-06-17 | Outpatient (CLI) | payer MEDICARE ==
[2019-06-17 15:31] LABS: ALBUMIN 3.1 gm/dL (3.5-5.0); CALCIUM 8.8 mg/dL (8.4-10.2); CREATININE, serum 0.88 (0.52-1.25); PHOSPHOROUS 4.9 mg/dL (2.5-4.5); POTASSIUM 5.6 mmol/L (3.4-5.0)
== END ==
LOC: COL.LAB 14:38
PROVIDERS: Internal Medicine Nephrology
DX: E83.51 Hypocalcemia (principal)

== ENCOUNTER 2019-06-27 13:00 | Outpatient (RCR) | payer MEDICARE ==
[2008-07-26 12:34] VITALS: BP 126/73
[2019-05-23 13:37] LABS: CREATININE, serum 0.69 (0.52-1.25); POTASSIUM 3.9 mmol/L (3.4-5.0)
[2019-05-23 13:48] LABS: CALCIUM 5.2 mg/dL (8.4-10.2)
[2019-05-23 15:00] VITALS: BP 104/66; PULSE 67; TEMP 97.6
[2019-05-23 16:29] LABS: ALBUMIN 2.7 gm/dL (3.5-5.0); BILIRUBIN,TOTAL 0.6 mg/dL (0.0-1.0); MAGNESIUM 1.8 mg/dL (1.6-2.3); POTASSIUM 4.2 mmol/L (3.4-5.0); TOTAL PROTEIN 5.3 gm/dL (6.4-8.2)
[2019-05-23 16:37] LABS: CREATININE, serum 0.75 (0.52-1.25); PHOSPHOROUS 2.8 mg/dL (2.5-4.5)
[2019-05-23 16:53] LABS: CALCIUM 5.2 mg/dL (8.4-10.2)
--- NOTE | 2019-05-23 17:36 | NUR ---
Per telephone order per Dr. Nevarez, pt was taken to ER via wheelchair. Pt was provided a mask to wear before transport to ER. Report given to Sumaya ANTONY. PT is awake and alert, denies any symptoms other than feeling more tired than usual.
[2019-05-30 13:15] VITALS: BP 122/56; PULSE 63; TEMP 98
[2019-06-05 11:19] VITALS: BP 127/55; PULSE 72; TEMP 97.5
[2019-06-05 12:51] LABS: HEMOGLOBIN 10.7 g/dl (12.5-16.0); MEAN CELL VOLUME 109 fl (80.0-100.0); MEAN CORPUSCULAR HEMOGLOBIN 32 pg (27.0-31.0); MEAN CORPUSCULAR HGB CONC 30 g/dl (33.0-37.0); MEAN PLATELET VOLUME 10.3 fl (7.4-10.4); PLATELET COUNT 158 K/mm3 (130-400); RED BLOOD COUNT 3.31 M/mm3 (4.10-5.30)
[2019-06-05 12:53] LABS: HEMATOCRIT 36.2 % (37.0-47.0)
[2019-06-05 12:55] LABS: ALBUMIN 2.6 gm/dL (3.5-5.0); BILIRUBIN,TOTAL 0.5 mg/dL (0.0-1.0); CALCIUM 6.1 mg/dL (8.4-10.2); CREATININE, serum 0.61 (0.52-1.25); POTASSIUM 4.3 mmol/L (3.4-5.0); TOTAL PROTEIN 5.2 gm/dL (6.4-8.2)
[2019-06-11 07:03] LABS: VITAMIN K 3.09 ng/mL (())
[2019-06-13 13:24] VITALS: BP 121/66; PULSE 67; TEMP 97.8
[2019-06-20 14:00] VITALS: BP 106/50; PULSE 72; TEMP 98.4
[2019-06-20 14:29] LABS: CALCIUM 8.1 mg/dL (8.4-10.2); CREATININE, serum 0.93 (0.52-1.25); PHOSPHOROUS 4.9 mg/dL (2.5-4.5); POTASSIUM 4.4 mmol/L (3.4-5.0)
[~2019-06-27] VITALS: Ht 167.6 cm; Wt 65.0 kg
[2019-06-27 13:34] VITALS: BP 126/40; PULSE 60; TEMP 98.5
--- NOTE | 2019-07-04 08:44 | NUR ---
This nurse spoke with pt.Per pt Her told her to stop weekly infusions.This nurse left message with AmeliaNurse at Dr pollack's office for orders.
--- NOTE | 2019-07-04 13:05 | NUR ---
Order received from office to discontinue infusions.This nurse spoke with pt and instructed her office wants her to continue to get her labs done.Per pt report she will ask office where they want labs to be done at.
== END 2019-07-09 10:12 | disposition home or self-care (01) ==
LOC: EUO 13:00
PROVIDERS: Internal Medicine
DX: K50.00 Crohn's disease of small intestine without complications (principal); K90.0 Celiac disease; E03.9 Hypothyroidism, unspecified; K90.9 Intestinal malabsorption, unspecified; M81.0 Age-related osteoporosis without current pathological fracture; E53.8 Deficiency of other specified B group vitamins; E56.1 Deficiency of vitamin K; E55.9 Vitamin D deficiency, unspecified; E61.0 Copper deficiency; Z79.899 Other long term (current) drug therapy
CPT/HCPCS: J1644; J2501; J3420; J7040

== ENCOUNTER 2019-08-06 13:18 | Outpatient (RCR) | payer MEDICARE ==
[2008-07-26 12:34] VITALS: BP 126/73
[~2019-08-06] VITALS: Ht 167.6 cm; Wt 67.1 kg
[2019-08-06 13:49] LABS: MEAN CELL VOLUME 112 fl (80.0-100.0); MEAN CORPUSCULAR HGB CONC 30 g/dl (33.0-37.0); MEAN PLATELET VOLUME 10.2 fl (7.4-10.4); PLATELET COUNT 176 K/mm3 (130-400); RED BLOOD COUNT 2.89 M/mm3 (4.10-5.30); REDCELL DISTRIBUTION WIDTH-CV 15.8 % (11.5-14.5)
[2019-08-06 13:52] LABS: HEMATOCRIT 32.3 % (37.0-47.0); HEMOGLOBIN 9.7 g/dl (12.5-16.0); MEAN CORPUSCULAR HEMOGLOBIN 34 pg (27.0-31.0)
[2019-08-06 13:58] LABS: ALBUMIN 2.9 gm/dL (3.5-5.0); BILIRUBIN,TOTAL 0.7 mg/dL (0.0-1.0); CALCIUM 8.1 mg/dL (8.4-10.2); CREATININE, serum 0.83 (0.52-1.25); POTASSIUM 4.2 mmol/L (3.4-5.0); TOTAL PROTEIN 5.5 gm/dL (6.4-8.2)
[2019-08-06 14:14] VITALS: BP 119/73; PULSE 66; TEMP 98.6
[2019-08-06 14:18] LABS: IRON,SERUM 72 ug/dL (35-150)
[2019-08-06 14:27] LABS: TOTAL IRON BINDING CAPACITY 167 ug/dL (265-497)
[2019-08-08 19:48] LABS: .COPPER,S 0.69 mcg/mL (())
== END 2019-08-06 14:17 | disposition home or self-care (01) ==
LOC: EUO 13:18
PROVIDERS: Internal Medicine
DX: E53.8 Deficiency of other specified B group vitamins (principal); K90.9 Intestinal malabsorption, unspecified; M81.0 Age-related osteoporosis without current pathological fracture; E03.9 Hypothyroidism, unspecified; E56.1 Deficiency of vitamin K; E55.9 Vitamin D deficiency, unspecified; K50.00 Crohn's disease of small intestine without complications; E61.0 Copper deficiency; K90.0 Celiac disease
CPT/HCPCS: J1644; J3420